=== PATIENT | male | born 1955 | race Caucasian/White ===

== ENCOUNTER 2017-02-15 23:36 | Emergency (ER) | payer OTHER ==
[~2017-02-15] VITALS: Ht 170.2 cm; Wt 74.4 kg
[2017-02-16] MEDS ORDERED: CYCLOBENZAPRINE10 M1 PO (02:16)
[2017-02-16] MEDS ORDERED: DICLOFENAC SODI75 M2 PO (02:16)
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
[2017-02-16 02:49] VITALS: BP 138/68
== END 2017-02-16 02:50 ==
LOC: ERH 23:36
DX: S29.012A Strain of muscle and tendon of back wall of thorax, initial encounter (principal); S86.919A Strain of unspecified muscle(s) and tendon(s) at lower leg level, unspecified leg, initial encounter; V49.40XA Driver injured in collision with unspecified motor vehicles in traffic accident, initial encounter; Y92.410 Unspecified street and highway as the place of occurrence of the external cause